=== PATIENT | female | born 1950 | race Caucasian/White ===

== ENCOUNTER 2019-07-23 12:37 | Inpatient (IN) | payer OTHER ==
[2019-07-23 13:36] LABS: Absolute Lymphocytes (CBC) 0.5 K/uL (0.7-4.9); Basophils % 0.1 % (0-1.3); Hematocrit 40.6 % (36.0-45.0); Lymphocytes % 5.9 % (15.3-44.8); RBC Red Blood Cell Count 4.53 M/uL (3.86-4.86)
[2019-07-23 13:43] LABS: Protime INR 1.13
[2019-07-23 13:51] LABS: Albumin 4.1 g/dL (3.4-5.0); Bilirubin Total 0.9 mg/dL (0.2-1.0); Potassium 3.9 mmol/L (3.5-5.1); Protein, Total 7.5 g/dL (6.4-8.2)
--- NOTE | 2019-07-23 13:59 | RAD REPORT ---
EXAM DESCRIPTION: RAD - Chest Single View - 07/23/2019 1:52 pm CLINICAL HISTORY: preop, pending hip fracture repair COMPARISON: None TECHNIQUE: AP portable chest image was obtained 07/23/2019 1:52 pm . FINDINGS: Lungs are clear. Heart and vasculature are normal. No measurable pleural effusion and no p neumothorax. No acute bony abnormality seen. No acute aortic findings suspected. IMPRESSION: No acute cardiopulmonary process.
--- NOTE | 2019-07-23 14:25 | EDPHYS ---
Physician Documentation [facility] Name: Emily Frank Age: 68 yrs Sex: Female : 1950 Arrival Date: 07/23/2019 Time: 12:39 Bed 5 Private MD: ED Physician Christa Solorzano HPI: 07/22 13:15 This 68 yrs old Female presents to ER via Wheelchair with complaints of L Hip ma2 Fx. 13:15 The patient or guardian reports decreased range of motion. The complaints affect the ma2 left leg. Associated signs and symptoms: Pertinent negatives: altered mental status, diarrhea, fever, headache. Severity of symptoms: At their worst the symptoms were moderate, in the emergency department the symptoms are unchanged. The patient has not experienced similar symptoms in the past. tripped and fell last night . Historical: - Allergies: 12:47 No Known Allergies; ca1 - Home Meds: 12:47 aspirin 81 mg Oral chew 1 tab once daily [Active]; ca1 - PMHx: 12:47 Glaucoma; ca1 - PSHx: 12:47 ; ca1 - Immunization history:: Adult Immunizations Last tetanus immunization: up to date Pneumococcal vaccine is not up to date, Flu vaccine is not up to date. - Social history:: Smoking status: Patient denies any tobacco usage or history of. Patient/guardian denies using alcohol, street drugs, The patient lives with family. - Family history:: not pertinent. ROS: 13:15 Constitutional: Negative for fever, chills, and weight loss. ma2 13:15 All other systems are negative. Exam: 13:15 Constitutional: This is a well developed, well nourished patient who is awake, alert, ma2 and in no acute distress. Chest/axilla: Normal chest wall appearance and motion. Nontender with no deformity. No lesions are appreciated. Cardiovascular: Regular rate and rhythm with a normal S1 and S2. No gallops, murmurs, or rubs. Normal PMI, no JVD. No pulse deficits. Respiratory: Lungs have equal breath sounds bilaterally, clear to auscultation and percussion. No rales, rhonchi or wheezes noted. No increased work of breathing, no retractions or nasal flaring. Abdomen/GI: Soft, non-tender, with normal bowel sounds. No distension or tympany. No guarding or rebound. No evidence of tenderness throughout. MS/ Extremity: pain and ttp on left hip, Pulses equal, no cyanosis. Neurovascular intact. Full, normal range of motion. Neuro: Awake and alert, GCS 15, oriented to person, place, time, and situation. Cranial nerves II-XII grossly intact. Motor strength 5/5 in all extremities. Sensory grossly intact. Cerebellar exam normal. Normal gait. Vital Signs: 12:43 BP 176 / 82; Pulse 72; Resp 16 S; Temp 97.2(TE); Pulse Ox 98% on R/A; Weight 72.57 kg ca1 (R); Height 5 ft. 6 in. (167.64 cm) (R); Pain 2/10; 15:25 BP 171 / 79; Pulse 71; Resp 16; Pulse Ox 100% ; jl7 12:43 Body Mass Index 25.82 (72.57 kg, 167.64 cm) ca1 MDM: 12:48 Patient medically screened. ma2 13:15 Differential diagnosis: hip fracture, intertrochanteric fracture, femoral shaft ma2 fracture, bursitis. Data reviewed: vital signs, nurses notes. Counseling: I had a detailed discussion with the patient and/or guardian regarding: the historical points, exam findings, and any diagnostic results supporting the discharge/admit diagnosis, the presence of at least one elevated blood pressure reading (>120/80) during this emergency department visit, the need for outpatient follow up. Response to treatment: the patient's symptoms have markedly improved after treatment. ED course: discussed with dr. Early certified medical assistant at 1316.. . 07/22 13:18 Order name: CBC with Diff or2 07/22 13:18 Order name: CMP; Complete Time: 14:20 or2 07/22 13:18 Order name: Chest Single View XRAY; Complete Time: 14:20 or2 07/22 13:18 Order name: Protime (+inr); Complete Time: 14:20 or2 07/22 13:18 Order name: Ptt, Activated; Complete Time: 14:20 or2 07/22 13:18 Order name: Lanier; Complete Time: 15:31 or2 07/22 13:18 Order name: NPO; Complete Time: 13:20 ma2 Administered Medications: 15:30 Drug: Dextrose 5 % in 1/2 Normal Saline with KCl 10 mEq/L 100 ml Route: IV; Rate: 100 jl7 ml/hr; Site: left antecubital; 15:31 Follow up: IV Status: Infusion continued upon admission jl7 Disposition: 07/23/19 14:25 Hospitalization ordered by Iliana Sorenson for Inpatient Admission. Preliminary diagnosis is Displaced subtrochanteric fracture of left femur. - Bed requested for Telemetry/MedSurg (Inpatient). - Status is Inpatient Admission. jl7 - Condition is Stable. - Problem is new. - Symptoms are unchanged. Signatures: Dispatcher [employer] EDMS Charmaine Lazcano RN RN jl7 Christa Solorzano MD MD or2 Elena Meraz Tisha Cisneros RN RN ca1 Corrections: (The following items were deleted from the chart) 14:43 14:25 Hospitalization Ordered by Iliana Sorenson MD for Inpatient Admission. Preliminary eb diagnosis is Displaced subtrochanteric fracture of left femur. Bed requested for Telemetry/MedSurg (Inpatient). Status is Inpatient Admission. Condition is Stable. Problem is new. Symptoms are unchanged. [facility] 15:25 14:43 07/23/2019 14:25 Hospitalization Ordered by Iliana Sorenson MD for Inpatient eb Admission. Preliminary diagnosis is Displaced subtrochanteric fracture of left femur. Bed requested for Telemetry/MedSurg (Inpatient). Status is Inpatient Admission. Condition is Stable. Problem is new. Symptoms are unchanged. eb 16:56 15:25 07/23/2019 14:25 Hospitalization Ordered by Iliana Sorenson MD for Inpatient jl7 Admission. Preliminary diagnosis is Displaced subtrochanteric fracture of left femur. Bed requested for Telemetry/MedSurg (Inpatient). Status is Inpatient Admission. Condition is Stable. Problem is new. Symptoms are unchanged. eb
--- NOTE | 2019-07-23 14:25 | ER ---
Nurse's Notes [facility] Name: Emily Frank Age: 68 yrs Sex: Female : 1950 Arrival Date: 07/23/2019 Time: 12:39 Bed 5 Private MD: Diagnosis: Displaced subtrochanteric fracture of left femur Presentation: 07/22 12:43 Chief complaint: Patient states: Missed a step on a step stool yesterday, fell and land ca1 on L hip. 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 Coronavirus screen: Proceed with normal triage. Patient denies a cough. Patient denies shortness of breath or difficulty breathing. Patient denies measured and/or subjective temperature greater than 100.4F prior to today's visit. Patient denies travel on a cruise ship or to a country the [facility] currently lists as an affected area. Patient denies contact with known and/or suspected case of COVID-19. Ebola Screen: Patient negative for fever greater than or equal to 101.5 degrees Fahrenheit, and additional compatible Ebola Virus Disease symptoms Patient denies exposure to infectious person. Patient denies travel to an Ebola-affected area in the 21 days before illness onset. No symptoms or risks identified at this time. Initial Sepsis Screen: Does the patient meet any 2 criteria? No. Patient's initial sepsis screen is negative. Does the patient have a suspected source of infection? No. Patient's initial sepsis screen is negative. Risk Assessment: Do you want to hurt yourself or someone else? Patient reports no desire to harm self or others. Onset of symptoms was July 23, 2019. 12:43 Method Of Arrival: Wheelchair ca1 12:43 Acuity: BELA 3 ca1 Historical: - Allergies: 12:47 No Known Allergies; ca1 - Home Meds: 12:47 aspirin 81 mg Oral chew 1 tab once daily [Active]; ca1 - PMHx: 12:47 Glaucoma; ca1 - PSHx: 12:47 ; ca1 - Immunization history:: Adult Immunizations Last tetanus immunization: up to date Pneumococcal vaccine is not up to date, Flu vaccine is not up to date. - Social history:: Smoking status: Patient denies any tobacco usage or history of. Patient/guardian denies using alcohol, street drugs, The patient lives with family. - Family history:: not pertinent. Screenin:08 Abuse screen: Denies threats or abuse. Denies injuries from another. Nutritional jl7 screening: No deficits noted. Tuberculosis screening: No symptoms or risk factors identified. 14:00 Fall Risk Fall in past 12 months (25 points). No secondary diagnosis (0 pts). IV access jl7 (20 points). Ambulatory Aid- None/Bed Rest/Nurse Assist (0 pts). Gait- Normal/Bed Rest/Wheelchair (0 pts) Mental Status- Oriented to own ability (0 pts). Total Mcgrath Fall Scale indicates Low Risk Score (25-44 pts). Fall prevention measures have been instituted. Side Rails Up X 2 Placed close to Nursing Station Frequent Obs/Assesments occuring As available Patient and Family Educated on Fall Prevention Program and strategies. Assessment: 13:08 General: Appears in no apparent distress. uncomfortable, Behavior is calm, cooperative, jl7 appropriate for age. Pain: Complains of pain in left hip Pain currently is 2 out of 10 on a pain scale. Pain began 1 day ago. Is episodic. Neuro: Level of Consciousness is awake, alert, obeys commands, Oriented to person, place, time, situation. Cardiovascular: Patient's skin is warm and dry. Respiratory: Airway is patent Respiratory effort is even, unlabored, Respiratory pattern is regular, symmetrical. Derm: Skin is pink, warm \T\ dry. Musculoskeletal: Range of motion: limited in left hip. 14:00 Reassessment: Patient appears in no apparent distress at this time. No changes from jl7 previously documented assessment. Patient and/or family updated on plan of care and expected duration. Pain level reassessed. Patient is alert, oriented x 3, equal unlabored respirations, skin warm/dry/pink. 15:00 Reassessment: Patient appears in no apparent distress at this time. No changes from jl7 previously documented assessment. Patient and/or family updated on plan of care and expected duration. Pain level reassessed. Patient is alert, oriented x 3, equal unlabored respirations, skin warm/dry/pink. 16:28 Reassessment: Dr. Early at bedside. jl7 Vital Signs: 12:43 BP 176 / 82; Pulse 72; Resp 16 S; Temp 97.2(TE); Pulse Ox 98% on R/A; Weight 72.57 kg ca1 (R); Height 5 ft. 6 in. (167.64 cm) (R); Pain 2/10; 15:25 BP 171 / 79; Pulse 71; Resp 16; Pulse Ox 100% ; jl7 12:43 Body Mass Index 25.82 (72.57 kg, 167.64 cm) ca1 ED Course: 12:39 Patient arrived in ED. as 12:45 Triage completed. ca1 12:47 Arm band placed on right wrist. ca1 12:48 Christa Solorzano MD is Attending Physician. ma2 12:49 Charmaine Lazcano, JAYSON is Primary Nurse. jl7 13:08 Patient has correct armband on for positive identification. Placed in gown. Bed in low jl7 position. Call light in reach. Side rails up X2. Pulse ox on. NIBP on. Warm blanket given. 13:25 Initial lab(s) drawn, by me, sent to lab. Inserted saline lock: 20 gauge in left aa5 antecubital area, using aseptic technique. Blood collected. 13:52 Chest Single View XRAY In Process Unspecified. EDMS 14:00 No provider procedures requiring assistance completed. Patient admitted, IV remains in jl7 place. intact, No redness/swelling at site. 14:25 Iliana Sorenson MD is Hospitalizing Provider. ma2 15:25 Lanier cath inserted, using sterile technique, 16 Fr., by me, balloon inflated, urine jl7 specimen collected. returned clear yellow urine. Patient tolerated well. Administered Medications: 15:30 Drug: Dextrose 5 % in 1/2 Normal Saline with KCl 10 mEq/L 100 ml Route: IV; Rate: 100 jl7 ml/hr; Site: left antecubital; 15:31 Follow up: IV Status: Infusion continued upon admission jl7 Outcome: 14:25 Decision to Hospitalize by Provider. ma2 15:00 Admitted to Med/surg accompanied by tech, via stretcher, room 202, with chart, Report jl7 called to JAYSON Aguila 15:00 Condition: stable 15:00 Discharge instructions given to patient, Instructed on the need for admit, Demonstrated understanding of instructions. 16:56 Patient left the ED. jl7 Signatures: Dispatcher [employer] EDPR Karol Edwards Audri, RN RN aa5 Charmaine Lazcano, RN RN jl7 Christa Solorzano MD MD ma2 Tisha Cisneros, RN RN ca1
[2019-07-23] MEDS ORDERED: D5 0.45 NS 1,000 ML IV ONE (14:31)
[2019-07-23] MEDS ORDERED: D5 0.45 NS 1,000 ML with POTASSIUM CL 10 MEQ IV SCH ×2 (15:00)
[2019-07-23] MEDS ORDERED: ACETAMINOPHEN 500 MG TAB PO PRN (16:07)
[2019-07-23] MEDS ORDERED: ONDANSETRON 4 MG/2 ML VIAL IV PRN (16:07)
[2019-07-23] MEDS ORDERED: ALBUTEROL 2.5 MG/3 ML NEB SOL NEB PRN (16:07)
[2019-07-23] MEDS ORDERED: LORAZEPAM 0.5 MG TABLET PO PRN (16:10)
--- NOTE | 2019-07-23 16:17 | P.HP ---
Certification for Inpatient With expected LOS: >2 Midnights Patient will require the following post-hospital care: [facility] Practitioner: I am a practitioner with admitting privileges, knowledge of patient current condition, hospital course, and medical plan of care. Services: Services provided to patient in accordance with Admission requirements found in Title 42 Section 412.3 of the Code of Federal Regulations Patient History Date of Service: 07/23/19 Reason for admission: fall with left hip pain History of Present Illness: 68-year-old female with past medical history of pre glaucoma on intermittent eye drops, family history of coronary artery disease admitted after developing a fall. Patient states she was cleaning and had climb up a ladder to clean the kitchen cabinet but while walking back she missed a step and fell hitting the left side. She felt intense pain and inability to move. She denies any loss of consciousness. She was later able to move but limited by pain on and left hip. On presentation in the ED she was noted with left hip fracture. Orthopedics has been consulted. She denies any nausea or vomiting. She denies any loss of consciousness. Review of Systems 10-point ROS is otherwise unremarkable Physical Examination - Physical Exam General: Alert, In no apparent distress, Oriented x3, Obese HEENT: Atraumatic, Normocephalic, PERRLA Neck: Supple, 2+ carotid pulse no bruit, JVD not distended Respiratory: Clear to auscultation bilaterally, Normal air movement Cardiovascular: No edema, Normal pulses, Regular rate/rhythm, Normal S1 S2 Gastrointestinal: Normal bowel sounds, Soft and benign, Non-distended Musculoskeletal: No clubbing, No swelling, Tenderness (Left hip) Integumentary: No rashes, No breakdown Neurological: Normal speech, Normal strength at 5/5 x4 extr - Studies Laboratory Data (last 24 hrs) 07/23/19 13:25: PT 13.3 H, INR 1.13, APTT 29.6 07/23/19 13:25: Sodium 141, Potassium 3.9, BUN 13, Creatinine 0.73, Glucose 109 H, Total Bilirubin 0.9, AST 15, ALT 23, Alkaline Phosphatase 84 07/23/19 13:25: WBC 8.8, Hgb 13.6, Hct 40.6, Plt Count 212 Imagings Data: Chest x-ray-no acute infiltrate images reviewed by me. EKG-pending Assessment and Plan - Problems (Diagnosis) (1) Hip fracture Current Visit: Yes Status: Acute (2) Glaucoma (increased eye pressure) Current Visit: Yes Status: Acute Plan to discharge in: 48 Hours - Advance Directives Does patient have a Living Will: No Does patient have a Durable POA for Healthcare: No Physician Review: Patient Assessed, Agree with Above Assessment and Plan Physician Review Additional Text: Left hip fracture-orthopedics consulted Labs within normal range Chest x-ray clear Follow EKG if been negative with PFO surgery Start gentle IV fluid with D5 NS for now PT and INR within normal range Continue aspirin start heparin subcu at but hold pre surgery History of glaucoma-stable DVT prophylaxis-subcutaneous heparin advanced directive patient is full code Disposition possible hospital stay for 48-72 hr , may need in the SNF
[2019-07-23] MEDS: D5 0.9 NS 1,000 ML IV SCH (18:03)
[2019-07-23 18:51] VITALS: BMI 27.1
[2019-07-23] MEDS: HYDROCODONE/APAP 5/325 MG TAB PO PRN (19:44)
[2019-07-23] MEDS: HEPARIN 5000 UNIT/ML 1 ML VIAL SQ SCH (19:47)
[2019-07-23 21:07] LABS: Blood Morphology Comment NOT SEEN (NOT SEEN); Platelet Estimate ADEQ; Urine White Blood Cell Casts OK
[2019-07-23] MEDS: MORPHINE 2 MG/ML SYR IV PRN (22:59)
[2019-07-24] MEDS: MORPHINE 2 MG/ML SYR IV PRN ×5 (00:10→22:19)
--- NOTE | 2019-07-24 02:44 | CON ---
Date of Consultation: 07/23/2019 History Of Present Illness: This is my first time seeing this person as a patient. She is a 68-year -old female who was apparently up on a ladder and trying to come back off the ladder where she missed the last step. She unfortunately fell with her hands full directly on her left hip onto the tile fl oor. She had immediate pain. She was unable to lift the leg or stand. She was taken to the emergen cy department where she was seen and examined by the emergency room physicians where she was found to be without other injuries other than the pain in the left hip. [facility] demonstrates a grossly displaced left femoral neck fracture. There are no significant arthritic changes. Physical Examination: All the long bones and joints are palpated without pain or crepitation with the exception of her left hip which is painful to any movement or manipulation. She appears neurovascular intact with no sign of an open injury. Imaging Data: Review of x-rays due to do demonstrate a completely displaced left femoral neck fractu re. Risks, benefits, and alternatives of different methods of manages including nonoperative management, urgent or emergent reduction with screw fixation, bipolar hemiarthroplasty or total hip arthroplasty were discussed. After reviewing the risks, benefits, and alternatives of each. We will most likely plan for a left noncemented high quality femoral stem bipolar hemiarthroplasty to be done tomorrow. Risks associated with this including the possibility of groin pain or hip discomfort from not perform ing a total hip arthroplasty been discussed also discussed the standard risks of infection, blood abisai t femur fracture, hip instability, likely difference, footdrop, blood clot. She says she understands things as presented and at this time I believe she can eat, but she should be n.p.o. after midnight. I will plan on doing this tomorrow. There appears to be some problem with scheduling case in the [place] because there is going to be a check of the generators and we apparently cannot schedule anyth ing before noon. However, we will attempt to get this done as soon as possible. She also does need to be seen by the medical doctors. All this has been explained to her and all of her questions have been answered. HERIBERTO Voice ID: [id number] Report ID: [id number]
[2019-07-24] MEDS: D5 0.9 NS 1,000 ML IV SCH ×3 (03:46→16:47)
[2019-07-24 05:28] LABS: Absolute Lymphocytes (CBC) 0.5 K/uL (0.7-4.9); Basophils % 0.2 % (0-1.3); Hematocrit 35.4 % (36.0-45.0); Lymphocytes % 6.6 % (15.3-44.8); MPV 8.2 fL (7.6-11.3); RBC Red Blood Cell Count 3.94 M/uL (3.86-4.86)
[2019-07-24 06:03] LABS: ALT/SGPT 17 U/L (12-78); AST/SGOT 11 U/L (15-37); Albumin 3.3 g/dL (3.4-5.0); Alkaline Phosphatase 66 U/L (45-117); BUN Blood Urea Nitrogen 10 mg/dL (7-18); Bicarbonate 28 mmol/L (21-32); Bilirubin Total 0.7 mg/dL (0.2-1.0); Glucose Level 128 mg/dL (74-106); Potassium 3.6 mmol/L (3.5-5.1); Protein, Total 6.2 g/dL (6.4-8.2); Sodium Level 142 mmol/L (136-145)
[2019-07-24] MEDS: HEPARIN 5000 UNIT/ML 1 ML VIAL SQ SCH (08:44)
[2019-07-24] MEDS: ASPIRIN EC 81 MG TAB PO SCH (08:44)
[2019-07-24] MEDS ORDERED: Ringers Lactate 1,000 ML IV ONE (08:46)
[2019-07-24] MEDS ORDERED: CEFAZOLIN/SWI 1gm 1 GM/10 ML SYR ONE (08:57)
[2019-07-24] MEDS ORDERED: TRANEXAMIC ACID 1,000 MG in NA CHLORIDE 0.9% 50 ML IV ONE (09:00)
[2019-07-24] MEDS ORDERED: SUCCINYLCHOLINE 20 MG/ML (10 ML) IV ONE (09:04)
[2019-07-24] MEDS ORDERED: MIDAZOLAM HCL 2 MG/2 ML INJ ONE (09:08)
[2019-07-24] MEDS ORDERED: propofoL 200 MG/20 ML VIAL IV ONE (09:08)
[2019-07-24] MEDS ORDERED: LIDOCAINE 1% MPF 30 ML VIAL ONE (09:19)
[2019-07-24] MEDS: Ringers Lactate 1,000 ML IV ONE ×2 (10:30→10:45)
--- NOTE | 2019-07-24 11:03 | P.BOP ---
Preoperative diagnosis: left femoral neck fracture Postoperative diagnosis: same Primary procedure: left bipolar hemiarthoplasty Estimated blood loss: 100ccs Anesthesia: General Complications: None Transferred to: Recovery Room Condition: Good
--- NOTE | 2019-07-24 11:14 | PN ---
Date of Progress Note: 07/24/2019 Subjective: Patient was seen and examined. Chart was reviewed and case was discussed with RN. Jahaira ent is going for hip surgery today. Pain is well controlled. Did require some morphine overnight. Medications: List reviewed. Code Status: Full. Physical Examination: Vital Signs: Temperature 99.8, heart rate 68, blood pressure 155/67, respirations 18, O2 of 93% on r oom air. General: Awake, alert, oriented x3, not in any acute distress. Pain is well controlled. Elderly fe male. CV: S1, S2. Regular rate and rhythm. Peripheral pulses are present. Respiratory: Moving air well bilaterally. No wheezing or stridor. Gastrointestinal: Abdomen is soft, nontender, nondistended. Positive bowel sounds. Extremities: No clubbing, cyanosis, or edema. Neuro: Cranial nerves 2 through 12 intact grossly. No focal neurological deficits. Speech is elidia l. Musculoskeletal: Decreased range of motion, left lower extremity. Tenderness to palpation, left hip . Laboratory Data: Sodium 142, potassium 3.6, chloride 109, CO2 of 28, BUN 10, creatinine 0.61, glucos e 128, calcium 7.8. WBC 8.1, H and H 12 and 35.4, platelets 175, neutrophils 82%. Assessment And Plan: 68-year-old female with: 1.Left hip fracture closed, initial encounter, subcapital femoral neck fracture. Plan is for pain c ontrol and Dr. Early is planning on open reduction and internal fixation. We will continue to mo nitor. 2.Glaucoma, stable. 3.Hyperglycemia without diagnosis of diabetes, likely due to acute phase reactant. Continue to james tor. 4.Overweight, body mass index 27. Plan, anticipate hip surgery. Patient will likely need PT/OT and possible rehab after surgery. From medical standpoint, patient is cleared for surgery. SA/MODL Voice ID: [id number] Report ID: [id number]
[2019-07-24] MEDS ORDERED: KETOROLAC 30 MG/ML INJ ONE (11:15)
--- NOTE | 2019-07-24 12:58 | OP ---
Date of Procedure: 07/24/2019 Surgeon: Isaac Early MD Preoperative Diagnosis: Left displaced femoral neck fracture. Postoperative Diagnosis: Left displaced femoral neck fracture. Procedure: Left bipolar hemiarthroplasty using the Biomet mini Taperloc noncemented stem as well as a standard bipolar bearing. Estimated Blood Loss: 100 cc. Complications: There were no complications. Indication For Operation: Ms. gonzalez is a 68-year-old female who was unfortunately on a ladder and mi ssed a step, injuring her left lower extremity. She denies other injuries, but x-rays demonstrated a displaced left femoral neck fracture. Risks, benefits, and alternatives of different ways of treati ng this have been discussed with the patient including the possibility of nonoperative management, wh ich is definitely not recommended. I also discussed urgent open reduction internal fixation with scr ew fixation. Discussed bipolar hemiarthroplasty. Discussed total hip arthroplasty. After being inf ormed of the risks, benefits, and alternatives of each, the patient has selected bipolar hemiarthropl asty. We will, however, place a high demand stem in case she does develop any groin pain. The benef its of the bipolars are they are less likely to dislocate. She says although is not very athleticall y active, she says that she does like to get in the yard with significant amount of bending and motio n activities and it was felt the bipolar would be less likely to cause instability. She does not hav e any really significantly appreciable arthritis and hopefully, she will not develop any groin pain. Otherwise, the risks of bipolar hemiarthroplasty were discussed. She states she understands things presented and wished to proceed. Description Of Procedure: The patient was taken to the operating room. Spinal anesthesia was obtain ed by the Anesthesia staff. Following this, she was then rolled right side down with an axillary rol l. Her hips were appropriately positioned using hip positioners. Her left lower extremity was than prepped and draped in usual sterile fashion for procedure. Following this, a standard posterior late ral incision was taken down carefully through skin only meticulous hemostasis being maintained using Bovie electrocautery. This leads down to the fat. There was noted to be a hematoma, which was super ficial to the fascia, which has pushed some of the fat off the fascia. This was gently debrided with some of the fat being debrided and gentle jet lavage was used to remove this hematoma. It does reve al some of the fascia demonstrating a loss of fat adherence to the fascial plane and this was noted. A standard incision was then made carefully and the gluteal tendon was palpated. The fascial incisi on was then brought up carefully until the gluteus savita muscles were encountered. This was follow ed by spreading of the gluteus savita muscles with fingers. The sciatic nerve was palpated and prot ected. The Charnley was placed. After this, some bursal and posterior fat was gently removed care b eing taken to avoid injury to the sciatic structures. This was followed by takedown of the external rotators and capsule as a unit and tagged for later repair with care being taken to avoid injury to t he sciatic nerve. The hip was then internally rotated, bringing the neck up. The fracture is slight ly lower than a standard neck cut and is simply smoothed off, any neck fragments were removed, and at tention was then turned to the femoral head. The femoral head was removed using a corkscrew and any obstructions within the acetabulum were removed using a rongeur. This was gently irrigated to ensure there were no residual neck pieces or significant soft tissue. Following this, the head was then si zed using ring gauges. Attention was then turned back to the femur where a skiver box toe was used to la teralize, followed by a canal-finding reamer. It was then sequentially broached up using the mini Ta perloc broaches until a size 13. It was then trialed with a high offset. High offset was quite diff icult to reduce. It was then trialed with a standard +3. The standard +3 appears very stable. Rosado keyona, can come to extension. Bringing past the extension reveals fairly significant tightness, felt t hat this may be a little bit long. Therefore, was trialed with a standard. Standard also was stable with full flexion, adduction, and internal rotation to approximately 35 degrees. It was determined that this was a better fit. Following this, the trial stem was removed. The final stem was placed. Final stem was again trialed with the same stability as well as fit and feel with no lateral or infe rior Shuck. This was selected as the final bearing. The final bearing is then placed upon the stem and ensuring that there is no soft tissue or foreign material in the acetabulum. This was then reloc ated. It was again checked and stable in above areas. Jet lavage was used and the external rotators and capsule were repaired back to the trochanter via bone tunnels. It was again used and the fascia was closed in a watertight fashion using heavy Vicryl sutures. Decision was made not to place a renata in, even though she did have a small injury to the fat and the skin was closed using interrupted Vicr yl sutures, followed by traci. She was placed in Aquacel dressing, awakened, and taken to recovery room in good condition. There were no complications. /OSCAR Voice ID: [id number] Report ID: [id number]
[2019-07-24] MEDS: CEFAZOLIN/SWI 1gm 1 GM/10 ML SYR IVP SCH (16:48)
[2019-07-24] MEDS: HYDROCODONE/APAP 5/325 MG TAB PO PRN (20:25)
[2019-07-25] MEDS: CEFAZOLIN/SWI 1gm 1 GM/10 ML SYR IVP SCH ×2 (00:21→08:41)
[2019-07-25] MEDS: D5 0.9 NS 1,000 ML IV SCH ×2 (00:24→09:00)
[2019-07-25] MEDS: MORPHINE 2 MG/ML SYR IV PRN (02:50)
[2019-07-25 05:26] LABS: Absolute Lymphocytes (CBC) 0.6 K/uL (0.7-4.9); Basophils % 0.1 % (0-1.3); Hematocrit 31.8 % (36.0-45.0); Lymphocytes % 6.7 % (15.3-44.8); MPV 8.3 fL (7.6-11.3); RBC Red Blood Cell Count 3.55 M/uL (3.86-4.86)
[2019-07-25] MEDS: ASPIRIN EC 81 MG TAB PO SCH (08:41)
[2019-07-25] MEDS: HYDROCODONE/APAP 5/325 MG TAB PO PRN (08:42)
[2019-07-25] MEDS ORDERED: BISACODYL 10 MG RECTAL SUPP PR PRN (09:21)
[2019-07-25] MEDS ORDERED: ENOXAPARIN 40 MG/0.4 ML SQ ONE (09:21)
--- NOTE | 2019-07-25 11:18 | PN ---
Date of Progress Note: 07/25/2019 Subjective: Patient was seen and examined. Chart was reviewed and case was discussed with RN and Dr Yin Early. Patient is doing well postoperatively. Treatment plan was explained. All questions we re answered. Patient is interested in going to rehab. Medications: List reviewed. Physical Examination: Vital Signs: Temperature 99.2, heart rate 80, blood pressure 168/75, respirations 17, O2 of 95% on r oom air. General: Awake, alert, oriented x3, not in any acute distress, elderly female. CV: S1, S2. Regular rate and rhythm. Peripheral pulses are present. Respiratory: Moving air well bilaterally. No wheezing or stridor. No use of accessory muscles. Gastrointestinal: Abdomen is somewhat distended. Hyperactive bowel sounds. No guarding or rigidity . Extremities: No clubbing, cyanosis, or edema. Musculoskeletal: Left hip incision site clean, dry, intact. Neuro: Cranial nerves 2 through 12 intact grossly. No focal neurological deficits. Speech is elidia l. Skin: No rashes. Normal skin turgor. Laboratory Data: WBC 8.6, H and H 10.9 and 31.8, platelets 169, neutrophils 82%. Assessment And Plan: 68-year-old female with: 1.Left hip fracture closed, initial encounter, subcapital femoral neck fracture, status post open re duction and internal fixation. We will start on Lovenox for deep vein thrombosis prophylaxis. Zhanna nue pain control. Physical Therapy has been consulted. Occupation Therapy is evaluated the patient. Patient will benefit from inpatient rehab placement. 2.Acute blood loss anemia, likely postoperative. We will continue to monitor. Hemoglobin is 10.9. Transfuse for hemoglobin less than 7. 3.Glaucoma, stable. 4.Hyperglycemia, without diagnosis of diabetes, likely due to acute phase reactant. 5.Overweight body mass index 27. Plan, start on DVT prophylaxis with Lovenox. Patient is over 12 hours postoperative, now PT eval, re ferred to rehab. Discontinue Lanier catheter. Patient also complaining of abdominal distention, like ly constipation from narcotics. We will start on Colace, MiraLAX, Dulcolax p.r.n. SA/MODL Voice ID: [id number] Report ID: [id number]
[2019-07-25] MEDS: POLYETHYL GLY 3350 17 GM/DOSE PO SCH (12:19)
--- NOTE | 2019-07-25 20:48 | PN ---
Date of Progress Note: 07/25/2019 Subjective: Patient is seen today. She is sitting comfortably in bed, eating breakfast. Her dressi ng is clean, dry, intact. EHL, tibialis anterior, and plantar flexion are strong. Review of her lab oratories reveal hemoglobin of 10.9. She has not yet seen Physical Therapy, will be doing so today. Assessment: Doing well status post left bipolar hemiarthroplasty. She will be working with therapy today. We will speak with the hospitalist regarding anticoagulation and we will see how she does for self-care. Also recommend removal of Lanier as soon as the hospitalist deemed that this is a possibl e. SE/MODL Voice ID: [id number] Report ID: [id number]
[2019-07-25] MEDS: DOCUSATE NA 100 MG CAP PO SCH (21:00)
[2019-07-26 05:27] LABS: Absolute Lymphocytes (CBC) 0.7 K/uL (0.7-4.9); Basophils % 0.4 % (0-1.3); Hematocrit 30.9 % (36.0-45.0); Lymphocytes % 8.3 % (15.3-44.8); MPV 8.3 fL (7.6-11.3); RBC Red Blood Cell Count 3.45 M/uL (3.86-4.86)
[2019-07-26 05:44] LABS: BUN Blood Urea Nitrogen 8 mg/dL (7-18); Bicarbonate 29 mmol/L (21-32); Glucose Level 112 mg/dL (74-106); Potassium 3.2 mmol/L (3.5-5.1); Sodium Level 137 mmol/L (136-145)
[2019-07-26] MEDS: POLYETHYL GLY 3350 17 GM/DOSE PO SCH (08:34)
[2019-07-26] MEDS: ASPIRIN EC 81 MG TAB PO SCH (08:34)
[2019-07-26] MEDS: DOCUSATE NA 100 MG CAP PO SCH ×2 (08:34→20:41)
--- NOTE | 2019-07-26 10:52 | P.PN ---
Subjective Date of Service: 07/26/19 Primary Care Provider: none Chief Complaint: fall with left hip pain Subjective: Improving, Doing well, Other (Patient doing well with physical therapy.) Physical Examination - Vital Signs Temperature: 97.4 F Blood Pressure: 130/60 Pulse: 68 Respirations: 18 Pulse Ox (%): 94 - Physical Exam General: Alert, In no apparent distress, Oriented x3, Cooperative HEENT: Atraumatic Neck: Supple Respiratory: Clear to auscultation bilaterally, Normal air movement Cardiovascular: Normal pulses, Regular rate/rhythm Gastrointestinal: Normal bowel sounds, Soft and benign, Non-distended Neurological: Normal speech, Normal strength at 5/5 x4 extr, Normal tone, Normal affect - Studies Medications List Reviewed: Yes Assessment & Plan Discharge Plan: Other (Inpatient rehab versus home with home health/physical therapy) Physician Review Additional Text: Impression: Subcapital femoral neck fracture, initial encounter, status post open reduction and internal fixation Acute blood-loss anemia likely post operative Glaucoma Hyperglycemia without diabetes mellitus Overweight, BMI 27 Plan: Subcapital femoral neck fracture, initial encounter, status post open reduction and internal fixation: Patient continues to do well with physical therapy. Advanced care planning address in detail. Patient awaiting approval for inpatient rehab. If declined then patient would prefer to go to home with home health and physical therapy. Case discussed with social media analyst. Await approval or to now on inpatient rehab to determine when to discharge patient. Anticipate decision within the next 24-48 hr. Advanced care planning-15 min. Acute blood-loss anemia likely post operative: Hemoglobin stable. Continue to monitor closely. Glaucoma: Overall stable. Hyperglycemia without diabetes mellitus: Will monitor this closely. Overweight: Continue to address lifestyle modification education. Time Spent Managing Pts Care (In Minutes): 55
[2019-07-26 23:09] VITALS: O2SAT 98
[2019-07-27] MEDS ORDERED: LACTULOSE 20 GM/30 ML UCUP PO PRN (07:25)
[2019-07-27] MEDS: ASPIRIN EC 81 MG TAB PO SCH (08:24)
[2019-07-27] MEDS ORDERED: ENOXAPARIN 40 MG/0.4 ML SQ SCH (09:00)
[2019-07-27] MEDS ORDERED: DOCUSATE NA 100 MG CAP PO SCH (09:00)
--- NOTE | 2019-07-27 13:23 | P.DS ---
Admission Date: 07/23/19 Discharge Date: 07/27/19 Primary Care Provider: none Disposition: AL HOME/HOME HEALTH CARE Discharge Condition: GOOD Reason for Admission: fall with left hip pain Consultations: Orthopedics=Dr. Early Procedures: Surgery: Date of Procedure: 07/24/2019 Surgeon: Isaac Early MD Preoperative Diagnosis: Left displaced femoral neck fracture. Postoperative Diagnosis: Left displaced femoral neck fracture. Procedure: Left bipolar hemiarthroplasty using the Biomet mini Taperloc noncemented stem as well as a standard bipolar bearing. Estimated Blood Loss: 100 cc. Complications: There were no complications. Medical Problem List: Subcapital femoral neck fracture, initial encounter, status post open reduction and internal fixation Acute blood-loss anemia likely post operative Glaucoma Hyperglycemia without diabetes mellitus Overweight, BMI 27 Brief History of Present Illness: 68-year-old female presented to the ER after falling from a ladder. She injured her left lower extremity. X-ray showed displaced left femur neck fracture. Patient was admitted for further evaluation and treatment. Hospital Course: Patient presented with subcapital femoral neck fracture after falling from a ladder. Patient was seen and evaluated by orthopedics. Patient had open reduction internal fixation of the femur. Patient tolerated procedure well. Postoperatively patient did well with physical therapy. Patient was evaluated for inpatient rehab. She was denied by insurance for inpatient rehab. Patient has decided to go home with home health and physical therapy. At discharge patient will have home health and physical therapy arranged. Patient will continue with pain control medication as recommended by orthopedics. Patient will also continue with Lovenox 40 mg subcu daily for 15 days. Recommend to continue with postoperative instructions. Recommend follow up with orthopedics as directed. Patient had acute blood-loss anemia. This is likely post operative. Hemoglobin has remained stable. No need for intervention at this time. Patient had hyperglycemia. Patient did not have evidence of diabetes. Recommend to monitor blood sugar as an outpatient. Recommend a follow up with PCP to further address. Lifestyle modification education provided. Recommend to check hemoglobin A1c in 3 months to further address. Vital Signs/Physical Exam: Temp Pulse Resp BP Pulse Ox 98.2 F 88 17 141/60 H 99 07/27/19 12:00 07/27/19 12:00 07/27/19 12:00 07/27/19 12:00 07/27/19 12:00 General: Alert, In no apparent distress, Oriented x3, Cooperative HEENT: Atraumatic Neck: Supple Respiratory: Clear to auscultation bilaterally, Normal air movement Cardiovascular: Normal pulses, Regular rate/rhythm Gastrointestinal: Normal bowel sounds, Soft and benign, Non-distended Neurological: Normal speech, Normal strength at 5/5 x4 extr, Normal tone, Normal affect Laboratory Data at Discharge: WBC 8.0 K/uL (4.3-10.9) 07/26/19 05:11 Hgb 10.7 g/dL (12.0-15.0) L 07/26/19 05:11 Hct 30.9 % (36.0-45.0) L 07/26/19 05:11 Plt Count 179 K/uL (152-406) 07/26/19 05:11 PT 13.3 SECONDS (9.5-12.5) H 07/23/19 13:25 INR 1.13 07/23/19 13:25 APTT 29.6 SECONDS (24.3-36.9) 07/23/19 13:25 Sodium 137 mmol/L (136-145) 07/26/19 05:11 Potassium 3.2 mmol/L (3.5-5.1) L 07/26/19 05:11 BUN 8 mg/dL (7-18) 07/26/19 05:11 Creatinine 0.48 mg/dL (0.55-1.3) L 07/26/19 05:11 Glucose 112 mg/dL (74-106) H 07/26/19 05:11 Total Bilirubin 0.7 mg/dL (0.2-1.0) 07/24/19 05:13 AST 11 U/L (15-37) L 07/24/19 05:13 ALT 17 U/L (12-78) 07/24/19 05:13 Alkaline Phosphatase 66 U/L (45-117) 07/24/19 05:13 Home Medications: Aspirin [Aspirin EC 81 MG] 81 mg PO DAILY 07/23/19 Enoxaparin Sodium [Lovenox 40 MG INJ*] 40 mg SQ DAILY #15 syr 07/27/19 Tramadol HCl [Ultram] 50 mg PO TID PRN #15 tablet 07/27/19 New Medications: Enoxaparin Sodium [Lovenox 40 MG INJ*] 40 mg SQ DAILY #15 syr Tramadol HCl [Ultram] 50 mg PO TID PRN #15 tablet PRN Reason: Pain Scale 2-4 (Mild) Patient Discharge Instructions: Patient to follow up with PCP in one week to establish care. Patient presented with subcapital femoral neck fracture after falling from a ladder. Patient was seen and evaluated by orthopedics. Patient had open reduction internal fixation of the femur. Patient tolerated procedure well. Postoperatively patient did well with physical therapy. Patient was evaluated for inpatient rehab. She was denied by insurance for inpatient rehab. Patient has decided to go home with home health and physical therapy. At discharge patient will have home health and physical therapy arranged. Patient will continue with pain control medication as recommended by orthopedics. Patient will also continue with Lovenox 40 mg subcu daily for 15 days. Recommend to continue with postoperative instructions. Recommend follow up with orthopedics as directed. Patient had acute blood-loss anemia. This is likely post operative. Hemoglobin has remained stable. No need for intervention at this time. Patient had hyperglycemia. Patient did not have evidence of diabetes. Recommend to monitor blood sugar as an outpatient. Recommend a follow up with PCP to further address. Lifestyle modification education provided. Recommend to check hemoglobin A1c in 3 months to further address. Diet: AHA Activity: Fall precautions Time spent managing pt's care (in minutes): 55
[2019-07-27 17:06] VITALS: BP 138/62; TEMP 97.3
== END 2019-07-27 17:25 | disposition home health service (06) | DRG 470 ==
LOC: ER 12:37 → ERHOLD 15:16 → 2ND 16:21
PROVIDERS: ADMIT Internal Medicine; ATTEND Family Medicine
PROC: 0SRS0JZ Replacement of Left Hip Joint, Femoral Surface with Synthetic Substitute, Open Approach (ICD-10-PCS; principal; 2019-07-24 09:00)
DX: S72.012A Unspecified intracapsular fracture of left femur, initial encounter for closed fracture (principal); D62 Acute posthemorrhagic anemia; E66.9 Obesity, unspecified; R73.9 Hyperglycemia, unspecified; H40.9 Unspecified glaucoma; Y93.E9 Activity, other interior property and clothing maintenance; Z20.828 Contact with and (suspected) exposure to other viral communicable diseases; Z79.82 Long term (current) use of aspirin; Z68.27 Body mass index [BMI] 27.0-27.9, adult; W11.XXXA Fall on and from ladder, initial encounter
CPT/HCPCS: 36415; 51702; 71045; 80048; 80053; 85025; 85610; 85730; 88305; 88311; 96374; 97110; 97116; 97161; 97530; 97535; 99285; J0330; J0690; J1644; J1650; J2250; J2270; J2704; J7042; J7120; J7799; U0002